=== PATIENT | female | born 1950 | race Caucasian/White ===

== ENCOUNTER 2025-01-16 09:46 | Outpatient (CLI) | payer MEDICARE, BC ==
--- NOTE | 2025-01-17 05:53 | CONSULTATION ---
DATE OF CONSULTATION: 01/16/2025 DICTATING PHYSICIAN: Crista White M.S., [facility]-POUCH MAKING MACHINE OPERATOR MODIFIED BARIUM SWALLOW STUDY REPORT REFERRING PHYSICIAN: Alonzo Bowers MD HISTORY OF PRESENT ILLNESS: The patient is a 74-year-old female and consents to this evaluation. In history obtained from the patient and medical records, the patient has been experiencing a chronic cough. She reports that it was more consistent in the past and started getting better in 02/2023 and now her cough is more occasional. She had an esophagram completed on 03/06/2023 at [facility], which was normal in results. She was seen for a high resolution esophageal manometry on 11/19/2024, which revealed normal sphincter activity with poor peristalsis and motility. She reports medical history of sleep apnea and that her heart functions at 40%. CURRENT DIET: The patient does not consume caffeine. She does not utilize tobacco products. She very rarely has alcohol. She had cut out social drinking back in 02/2023 and even back then it was maybe 1 fracisco whenever she would go out to eat. She consumes chocolate twice weekly. In terms of dairy products, she does not have milk and she very rarely consumes ice cream. A typical breakfast consists of granola on top of yogurt. She may or may not have a snack in the morning, but if she does, it would be fruit. For lunch, she has a sandwich. Her dinner she tries to have before 3:00 p.m. and this consists of various protein sources or a salad; however, she recently stopped having salad due to instructions after her high-resolution esophageal manometry. She does not eat anything after 3:00 p.m. and goes to bed between 9 and 11. MEDICATIONS: Entresto 49/51 mg twice daily orally, metoprolol 25 mg once daily orally. PARAMETERS: The patient is seated in a lateral 90-degree view and administered the usual protocol of thin and nectar thick liquids, puree and solid consistencies, as well as self-regulated boluses of thin liquids from the cup. RESULTS: In the oral stage of the swallow, the patient was easily able to transfer the boluses from the anterior to posterior oral cavity. There did not appear to be any difficulty with strength or range of motion of the tongue. There was a mild oral residue on the level of the tongue base for the 5 mL thin liquid bolus in the pharyngeal stage of the swallow. Tongue base retraction was mildly reduced. Swallow initiation was within functional limits. Anterior movement of the posterior pharyngeal wall was observed. Elevation of the hyothyroid complex was accomplished with full range of motion for epiglottic inversion and anterior and superior movement of the hyoid. PES opening was within functional limits. In terms of pharyngeal residue, there was a mild pharyngeal residue at the level of the PES opening for self-regulated boluses of thin liquid only due to the large amount that the patient consumed and filled her entire oral cavity with this thin liquid bolus. She completed the spontaneous secondary swallow and needed to clear the pharyngeal residue from the pharyngeal cavity. In terms of airway safety, at no time was the patient noted to penetrate or aspirate on any of the bolus sizes or consistencies. ANTERIOR, POSTERIOR VIEW: In the AP plane, the bolus split symmetrically between the piriform sinuses and there was no proximal movement of the boluses noted. IMPRESSION: The patient demonstrates what appears to be a mild oropharyngeal stage swallowing disorder characterized by mildly reduced tongue base retraction. DIAGNOSES: R13.12, dysphagia, oropharyngeal phase, K21.9, gastroesophageal reflux disease. PATIENT EDUCATION: Immediately following modified barium swallow study, the patient was able to view the results. The normal anatomy of the swallowing mechanism was revealed. The patient did mention that she believes that she is swallowing a lot of air and had questions regarding this, and so she was educated on strategies to reduce air swallowing, including limiting use of straws and avoiding carbonation. The patient was also educated on the appropriate swallow exercise to strengthen what was mildly reduced tongue base retraction. RECOMMENDATIONS: It is recommended that the patient complete the effortful swallow exercise and complete the strategies for air swallowing. LONG-TERM GOALS: The patient will maintain adequate hydration/nutrition with optimum safety and efficiency of swallow function on p.o. intake without overt signs and symptoms of aspiration for the highest possible diet level. FUNCTIONAL ORAL INTAKE: The FOIS was administered to establish and document a change in the functional eating activities of this patient over time. This is a 7-point scale with 1 indicating no oral intake and totally tube dependent and 7 indicating total oral intake with no restrictions. This patient received a 6, which indicates she has a total oral diet with multiple consistencies without special preparation, but with specific food limitations and precautions. G-CODE: [id number]. Thank you very much for asking me to participate in the care of this kind patient. Should you have any questions regarding this evaluation or recommendations, please do not hesitate to contact me at [phone]. During this examination, 2:55 minutes of fluoroscopy time and 1.66 CAK mGy were utilized. Crista White M.S., [place]-[employer] MAKING MACHINE OPERATOR TID: [id number] RECEIPT: [id number] [facility]
== END 2025-01-16 23:59 | disposition home or self-care (01) ==
LOC: RAD 09:46
PROVIDERS: ATTEND Internal Medicine Gastroenterology
DX: R13.12 Dysphagia, oropharyngeal phase (principal); K21.9 Gastro-esophageal reflux disease without esophagitis
CPT/HCPCS: 74230